=== PATIENT | male | born 1975 ===

== ENCOUNTER 2017-08-15 18:59 | Observation (INO) | payer BC ==
[2017-08-15 18:59] VITALS: BMI 34.4
[2017-08-15] MEDS ORDERED: Sodium Chloride 0.9% 1,000 ML IV STA (19:16)
[2017-08-15 19:23] VITALS: RESP 18; TEMP 98.6
[2017-08-15 19:57] LABS: BASO # 0.04 K/mm3 (0.0-2.0); BASO % 0.5 % (0.0-3.0); EOS # 0.2 (0.0-0.7); EOS % 2.1 % (1.5-5.0); GRAN # 4.07 (1.4-6.5); GRAN % 49.1 % (50.0-68.0); HEMATOCRIT 48.4 % (42.0-52.0); LYMPH # 3.4 (1.2-3.4); LYMPH % 41.4 % (22.0-35.0); MEAN CORPUSCULAR HGB CONC 34.1 g/dl (31.0-37.0); MEAN PLATELET VOLUME 10.1 fl (7.0-11.0); MONO # 0.6 (0.1-0.6); MONO % 6.9 % (1.0-6.0); RED CELL DISTRIBUTION WIDTH 14.2 % (11.5-14.5); WHITE BLOOD COUNT 8.3 10^3/ul (4.5-11.0)
[2017-08-15 19:59] LABS: ALB/GLOB RATIO 1.5 (1.1-1.8); ALKALINE PHOSPHATASE 101 U/L (38-126); ALT/SGPT 72 U/L (7-56); AST/SGOT 57 U/L (17-59); BILIRUBIN,TOTAL 0.3 mg/dL (0.2-1.3); BLOOD UREA NITROGEN 15 mg/dL (7-21); CALCIUM 9.3 mg/dL (8.4-10.5); CARBON DIOXIDE 31 mmol/L (21-33); CHLORIDE 103 mmol/L (98-107); GFR AFRICAN-AMERICAN > 60; GLUCOSE,RANDOM 106 mg/dL (70-110); POTASSIUM 4.1 mmol/L (3.6-5.0); SODIUM 151 mmol/L (132-148); TOTAL PROTEIN 8.2 g/dL (5.8-8.3)
--- NOTE | 2017-08-15 21:01 | ED PDOC ---
Arrival/HPI - General Historian: Spouse, Police - History of Present Illness Time/Duration: Prior to Arrival Symptom Course: Unchanged Quality: Other Context: Home <Kayla Daniels - Last Filed: 08/16/17 02:12> <Valentin Epstein - Last Filed: 08/16/17 05:42> - General Chief Complaint: Alcohol Ingestion Time Seen by Provider: 08/15/17 19:16 - History of Present Illness Narrative History of Present Illness (Text): 08/15/17 20:57 A 42 year old male brought into the emergency department by [place] Police for alcohol intoxication. Police report patient was drinking at home when they received a call for aggressive behavior. reports patient drinks alcohol on a daily basis but has never seen him this intoxicated before. Patient is refusing to provide any further details. HPI and ROS limited. (Kayla Daniels) Past Medical History - Provider Review Nursing Documentation Reviewed: Yes - Infectious Disease Hx of Infectious Diseases: None - Tetanus Immunization Tetanus Immunization: Unknown - Past Medical History Past Medical History: No Previous - Musculoskeletal/Rheumatological Hx Falls: No - Psychiatric Hx Depression: Yes Hx Emotional Abuse: No Hx Physical Abuse: No Hx Substance Use: No - Surgical History Hx Appendectomy: Yes - Suicidal Assessment Feels Threatened In Home Enviroment: No <Kayla Daniels - Last Filed: 08/16/17 02:12> Family/Social History - Physician Review Nursing Documentation Reviewed: Yes Family/Social History: No Known Family HX Smoking Status: Never Smoked Hx Alcohol Use: Yes (1 pint vodka) Hx Substance Use: No Hx Substance Use Treatment: No <Kayla Daniels - Last Filed: 08/16/17 02:12> Allergies/Home Meds <Kayla Daniels - Last Filed: 08/16/17 02:12> <Valentin Epstein - Last Filed: 08/16/17 05:42> Allergies/Adverse Reactions: Allergies No Known Allergies Allergy (Verified 08/15/17 19:05) Home Medications: Home Meds Medication Instructions Recorded Confirmed Unobtainable 08/15/17 08/15/17 Review of Systems - Review of Systems Systems not reviewed;Unavailable: Intoxicated <Kayla Daniels - Last Filed: 08/16/17 02:12> Physical Exam Vital Signs Reviewed: Yes Temperature: Afebrile Blood Pressure: Normal Pulse: Tachycardic Respiratory Rate: Normal Appearance: Positive for: Other (Toxicated male, alcohol on breath) Pain Distress: None Mental Status: Positive for: other (intoxicated. alert) Finger Stick Blood Glucose: 106 - Systems Exam Head: Present: Atraumatic, Normocephalic Pupils: Present: PERRL Extroacular Muscles: Present: EOMI Conjunctiva: Present: Normal Mouth: Present: Moist Mucous Membranes Neck: Present: Normal Range of Motion. No: Other (bony tenderness, step offs or crepitus) Respiratory/Chest: Present: Clear to Auscultation, Good Air Exchange. No: Respiratory Distress, Accessory Muscle Use Cardiovascular: Present: Regular Rate and Rhythm, Tachycardic Abdomen: Present: Peritoneal Signs. No: Tenderness, Distention Back: Present: Normal Inspection, Other (bony tenderness, step offs or crepitus) Upper Extremity: Present: Normal Inspection, Normal ROM. No: Cyanosis, Edema, Tenderness Lower Extremity: Present: Normal Inspection, NORMAL PULSES, Normal ROM. No: Edema, CALF TENDERNESS, Tenderness Skin: Present: Warm, Dry, Normal Color. No: Rashes Psychiatric: Present: Alert, Agitated, Intoxicated. No: Lethargic <Kayla Daniels - Last Filed: 08/16/17 02:12> Vital Signs Temp Pulse Resp BP Pulse Ox 08/15/17 19:22 98.6 F 100 H 18 129/69 96 Medical Decision Making - Lab Interpretations I have reviewed the lab results: Yes <Kayla Daniels - Last Filed: 08/16/17 02:12> <Valentin Epstein - Last Filed: 08/16/17 05:42> ED Course and Treatment: 08/15/17 20:57 A 42 year old male brought in for alcohol intoxication. Police reported aggressive behavior. Plan is to check labs and observe pending sobriety. cbc;wnl cmp; wnl alcohol; 416 ct head; pt at risk for causing harm to self; pt placed in restraints, ativan and haldol ordered. restraints discontinued at 11:30PM after patient resting comfortably. no distress. 08/16/17 02:12 case signed out to dr. epstein pending sobriety and disposition (Kayla Daniels) Case signed out to me. Pending sobriety, reevaluation and disposition. ( Valentin Epstein) - Medication Orders Current Medication Orders: Discontinued Medications Haloperidol Lactate (Haldol) 5 mg IM STAT STA PRN Reason: Protocol Stop: 08/15/17 22:09 Last Admin: 08/15/17 22:20 Dose: 5 mg IM Administration Charges Document 08/15/17 22:20 ESTHER (Rec: 08/15/17 22:21 ESTHER [id number]) Injection Site MAR Injection Site Left Deltoid Charges for Administration # of IM Administrations 1 Sodium Chloride (Sodium Chloride 0.9%) 1,000 mls @ 999 mls/hr IV .Q1H1M STA Stop: 08/15/17 20:16 Last Admin: 08/15/17 19:33 Dose: 999 mls/hr eMAR Start Stop Document 08/15/17 19:33 ESTHER (Rec: 08/15/17 19:33 ESTHER [id number]) Intravenous Solution Start Date 08/15/17 Start Time 19:33 End Date 08/15/17 End time 20:23 Total Infusion Time 50 Lorazepam (Ativan) 2 mg IM ONCE ONE Stop: 08/15/17 22:08 Last Admin: 08/15/17 22:19 Dose: 2 mg IM Administration Charges Document 08/15/17 22:19 ESTHER (Rec: 08/15/17 22:19 ESTHER [id number]) Injection Site MAR Injection Site Left Arm Charges for Administration # of IM Administrations 1 Ondansetron HCl (Zofran Inj) 4 mg IVP STAT STA Stop: 08/15/17 19:17 Last Admin: 08/15/17 19:34 Dose: 4 mg IVP Administration Document 08/15/17 19:34 ESTHER (Rec: 08/15/17 19:34 ESTHER [id number]) Charges for Administration # of IVP Administrations 1 ED OBSERVATION Date of observation admission: 08/15/17 Time of observation admission: 19:20 - Observation admission statement Patient is placed on observation because of need: for serial examinations to determine stability for disposition - Goals of Observation Goals of Observation: Clinical sobriety - Progress Note Time:: 19:10 <Kayla Daniels - Last Filed: 08/16/17 02:12> Discharge: Yes <Valentin Epstein - Last Filed: 08/16/17 05:42> - Progress Note Progress Note: 08/15/17 19:10 Patient brought in for alcohol intoxication. Will observe pending sobriety. 08/15/17 19:58 Code star was called at this time for witnessed fall. Patient stood up from his bed and fell to the ground. Patient remains alert, however remains intoxicated. Will order Head CT. 08/16/17 22:00 pt sleeping. no distress. 08/16/17 01:09 pt sleeping; HEad ct negative. no distress. (Kayla Daniels) 08/16/17 02:30 Patient is resting comfortably. 08/16/17 04:20 Patient is in no acute distress. 08/16/17 05:41 Patient is awake, alert with steady gait. is present to accompany patient home. Patient in agreement with plan to be discharged home. Patient is stable for discharge. Patient was instructed to follow up with physician or return if symptoms worsen or new concerning symptoms arise. 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 MD/ has examined the patient and agrees with the treatment plan. <Valentin Epstein - Last Filed: 08/16/17 05:42> - Scribe Statement Radha Ansari Provider Scribe Attestation: All medical record entries made by the Scribe were at my direction and personally dictated by me. I have reviewed the chart and agree that the record accurately reflects my personal performance of the history, physical exam, medical decision making, and the department course for this patient. I have also personally directed, reviewed, and agree with the discharge instructions and disposition. (Kayla Daniels) Disposition/Present on Arrival - Present on Arrival Any Indicators Present on Arrival: No History of DVT/PE: No History of Uncontrolled Diabetes: No Urinary Catheter: No History of Decub. Ulcer: No History Surgical Site Infection Following: None - Disposition Have Diagnosis and Disposition been Completed?: Yes <Kayla Daniels - Last Filed: 08/16/17 02:12> - Present on Arrival Any Indicators Present on Arrival: No - Disposition Have Diagnosis and Disposition been Completed?: Yes Disposition Time: 05:40 Patient Plan: Discharge <Valentin Epstein - Last Filed: 08/16/17 05:42> - Disposition Diagnosis: Alcohol intoxication Disposition: HOME/ ROUTINE Patient Problems: Current Active Problems Problem Status Onset Alcohol intoxication Acute Condition: GOOD
--- NOTE | 2017-08-16 00:40 | CT ---
EXAM: CT Head Without Intravenous Contrast CLINICAL HISTORY: 42 years old, male; Injury or trauma; Fall; Initial encounter; Concussion / head injury; Additional info: Fall/etoh TECHNIQUE: Axial computed tomography images of the head/brain without intravenous contrast. All CT scans at this facility use one or more dose reduction techniques, viz.: automated exposure control; ma/kV adjustment per patient size (including targeted exams where dose is matched to indication; i.e. head); or iterative reconstruction technique. COMPARISON: No relevant prior studies available. FINDINGS: Brain: No acute intracranial hemorrhage. No significant white matter disease. No edema. Ventricles: No significant ventriculomegaly. Bones: No acute displaced fracture. Sinuses: Unremarkable as visualized. No acute sinusitis. Mastoid air cells: Unremarkable as visualized. No mastoid effusion. IMPRESSION: No acute intracranial hemorrhage, or suspicious mass effect.
[2017-08-16 05:57] VITALS: BP 124/76; PULSE 84; O2SAT 99
== END 2017-08-16 05:39 | disposition home or self-care (01) ==
LOC: ED 18:59 → EROBSV 19:10
PROVIDERS: ADMIT Emergency Medicine; ATTEND Emergency Medicine
DX: F10.129 Alcohol abuse with intoxication, unspecified (principal); Y90.8 Blood alcohol level of 240 mg/100 ml or more
CPT/HCPCS: 70450; 80053; 82948; 85025; 96361; 96372; 96374; 99284; G0378; G0480; J1630; J2060; J2405; J7040

== ENCOUNTER 2017-10-13 10:52 | Emergency (ER) | payer BC ==
[2017-10-13 10:52] VITALS: BMI 34.4
[2017-10-13 11:15] VITALS: TEMP 97.5
--- NOTE | 2017-10-13 12:22 | ED PDOC ---
Arrival/HPI - General Chief Complaint: Alcohol Ingestion Time Seen by Provider: 10/13/17 10:57 Historian: Patient, EMS - History of Present Illness Narrative History of Present Illness (Text): 10/13/17 12:20 A 42 year old male, well known to [facility] for ETOH intoxication, presents to the emergency department via EMS after being found outside of a bar. The patient was brought into the emergency department for further evaluation. The patient denies fevers, chills, headache, dizziness, chest pain, shortness of breath, dyspnea on exertion, cough, abdominal pain, nausea, vomiting, diarrhea, back pain, neck pain, urinary/bowel changes, or any other complaint. Time/Duration: Prior to Arrival Symptom Onset: Sudden Symptom Course: Unchanged Activities at Onset: Rest Context: Street Past Medical History - Infectious Disease Hx of Infectious Diseases: None - Tetanus Immunization Tetanus Immunization: Unknown - Past Medical History Past Medical History: No Previous - Musculoskeletal/Rheumatological Hx Falls: No - Psychiatric Hx Depression: Yes Hx Substance Use: No - Surgical History Hx Appendectomy: Yes - Suicidal Assessment Feels Threatened In Home Enviroment: No Family/Social History - Physician Review Nursing Documentation Reviewed: Yes Family/Social History: Unknown Family HX Smoking Status: Never Smoked Hx Alcohol Use: Yes (1 pint vodka) Frequency of alcohol use: Daily Hx Substance Use: No Hx Substance Use Treatment: No Allergies/Home Meds Allergies/Adverse Reactions: Allergies Unobtainable Allergy (Verified 10/13/17 10:59) Home Medications: Home Meds Medication Instructions Recorded Confirmed Unobtainable 08/15/17 10/13/17 Review of Systems - Physician Review All systems were reviewed & negative as marked: Yes - Review of Systems Constitutional: absent: Fevers, Night Sweats Respiratory: absent: SOB Cardiovascular: absent: Chest Pain, SCHWARTZ Gastrointestinal: absent: Abdominal Pain, Stool Changes, Diarrhea, Nausea, Vomiting Genitourinary Male: absent: Urinary Output Changes Musculoskeletal: absent: Back Pain, Neck Pain Neurological: absent: Headache, Dizziness Physical Exam Vital Signs Temp Pulse Resp BP Pulse Ox 10/13/17 13:15 74 16 130/75 96 10/13/17 11:15 97.5 F L 79 18 140/84 95 Temperature: Hypothermic Blood Pressure: Normal Pulse: Regular Respiratory Rate: Normal Appearance: Positive for: Well-Appearing Pain Distress: None Mental Status: Positive for: Alert and Oriented X 3 Finger Stick Blood Glucose: 96 - Systems Exam Head: Present: Atraumatic, Normocephalic Pupils: Present: PERRL Extroacular Muscles: Present: EOMI Conjunctiva: Present: Normal Mouth: Present: Moist Mucous Membranes Neck: Present: Normal Range of Motion Respiratory/Chest: Present: Clear to Auscultation, Good Air Exchange. No: Respiratory Distress, Accessory Muscle Use Cardiovascular: Present: Regular Rate and Rhythm, Normal S1, S2. No: Murmurs Abdomen: Present: Normal Bowel Sounds. No: Tenderness, Distention, Peritoneal Signs Back: Present: Normal Inspection Upper Extremity: Present: Normal Inspection. No: Cyanosis, Edema Lower Extremity: Present: Normal Inspection. No: Edema Neurological: Present: GCS=15, CN II-XII Intact, Speech Normal Skin: Present: Warm, Dry, Normal Color. No: Rashes Psychiatric: Present: Alert, Oriented x 3, Normal Insight, Normal Concentration Medical Decision Making ED Course and Treatment: 10/13/17 12:26 Impression: A 42 year old male is brought into the emergency department for ETOH intoxication after being found outside of a bar. Plan: -- EKG -- Reassess and disposition Prior Visits: Notes and results from previous visits were reviewed. Patient was last seen in the emergency department on 08/15/17. Patient was seen in the emergency department after being brought in by [facility] for aggressive behavior and ETOH intoxication. The patient was discharged home. Progress Notes: 10/14/17 07:32 was called and pick up operator patient. d/c to . pt ambualted out of er. - EKG Interpretation Interpreted by ED Physician: Yes Type: 12 lead EKG - Medication Orders Current Medication Orders: Discontinued Medications Lorazepam (Ativan) 2 mg IM STAT STA PRN Reason: Protocol Stop: 10/13/17 14:41 Ziprasidone (Geodon Inj) 20 mg IM STAT STA PRN Reason: Protocol Stop: 10/13/17 14:41 - Scribe Statement The provider has reviewed the documentation as recorded by the Sylviaibe Latia Ramirez Provider Scribe Attestation: All medical record entries made by the Scribe were at my direction and personally dictated by me. I have reviewed the chart and agree that the record accurately reflects my personal performance of the history, physical exam, medical decision making, and the department course for this patient. I have also personally directed, reviewed, and agree with the discharge instructions and disposition. Disposition/Present on Arrival - Present on Arrival Any Indicators Present on Arrival: No History of DVT/PE: No History of Uncontrolled Diabetes: No Urinary Catheter: No History of Decub. Ulcer: No History Surgical Site Infection Following: None - Disposition Have Diagnosis and Disposition been Completed?: Yes Diagnosis: Alcohol intoxication Disposition: HOME/ ROUTINE Disposition Time: 02:00 Condition: STABLE Discharge Instructions (ExitCare): Alcohol Intoxication (DC) Additional Instructions: please follow up with your doctor. return to er with worsening symptoms or concerns. Referrals: Cydney Gilliland, [Primary Care Provider] - Follow up with primary Forms: [employer] (Croatian)
[2017-10-13 13:15] VITALS: BP 130/75; PULSE 74; RESP 16; O2SAT 96
--- NOTE | 2017-10-13 17:08 | CARD ---
APPROVED REPORT EKG Measurement Heart [id number] <Conclusion> Normal sinus rhythm with sinus arrhythmia Normal ECG
== END 2017-10-13 15:30 | disposition home or self-care (01) ==
LOC: ED 10:52
DX: F10.129 Alcohol abuse with intoxication, unspecified (principal); Y90.9 Presence of alcohol in blood, level not specified

== ENCOUNTER 2019-01-29 18:01 | Emergency (ER) | payer BC ==
[2019-01-29 18:01] VITALS: BMI 34.4
[2019-01-29] MEDS ORDERED: Sodium Chloride 0.9% 1,000 ML IV STA (18:43)
[2019-01-29 18:53] VITALS: RESP 18; TEMP 97.7
--- NOTE | 2019-01-29 18:55 | ED PDOC ---
Arrival/HPI - General Historian: Patient - History of Present Illness Narrative History of Present Illness (Text): 01/29/19 18:55 Patient is a 43-year-old M in police custody who presents with chest pain x2 minutes. Patient says pain is on the left side of chest. Patient is unable to describe the pain and just says "i felt uncomfortable." Patient rates the pain at 4/10 in severity and radiating all throughout his left body. Patient admits to nausea and shortness of breath, palpitations, but Patient otherwise denies vomiting, headache, back pain, leg pain, fever and/or chills. Patient states this never happened before and he says he is feeling anxious. <Delfino Shipman - Last Filed: 01/29/19 20:44> <Jackson Oliveira - Last Filed: 01/29/19 20:55> - General Chief Complaint: Anxiety Time Seen by Provider: 01/29/19 18:26 Past Medical History - Provider Review Nursing Documentation Reviewed: Yes - Infectious Disease Hx of Infectious Diseases: None - Tetanus Immunization Tetanus Immunization: Unknown - Past Medical History Past Medical History: No Previous - Musculoskeletal/Rheumatological Hx Falls: No - Psychiatric Hx Depression: Yes Hx Substance Use: No - Surgical History Hx Appendectomy: Yes - Anesthesia Hx Anesthesia: No Hx Anesthesia Reactions: No Hx Malignant Hyperthermia: No - Suicidal Assessment Feels Threatened In Home Enviroment: No <Delfino Shipman - Last Filed: 01/29/19 20:44> Family/Social History - Physician Review Nursing Documentation Reviewed: Yes Family/Social History: No Known Family HX Smoking Status: Never Smoked Hx Alcohol Use: Yes (1 pint vodka) Hx Substance Use: No Hx Substance Use Treatment: No <Delfino Shipman - Last Filed: 01/29/19 20:44> Allergies/Home Meds <Delfino Shipman - Last Filed: 01/29/19 20:44> <Jackson Oliveira - Last Filed: 01/29/19 20:55> Allergies/Adverse Reactions: Allergies No Known Allergies Allergy (Verified 01/29/19 18:33) Review of Systems - Review of Systems Constitutional: Normal Eyes: Normal ENT: Normal Respiratory: SOB. absent: Cough, Sputum, Wheezing Cardiovascular: Chest Pain, Palpitations. absent: Edema, Calf Pain Gastrointestinal: Nausea. absent: Abdominal Pain, Vomiting Skin: Normal Neurological: Normal. absent: Headache, Dizziness, Focal Weakness Endocrine: Normal. absent: Diaphoresis Hemo/Lymphatic: Normal Psychiatric: Anxiety <Delfino Shipman - Last Filed: 01/29/19 20:44> Physical Exam Appearance: Positive for: Uncomfortable Pain Distress: None Mental Status: Positive for: Alert and Oriented X 3 - Systems Exam Head: Present: Atraumatic, Normocephalic Pupils: Present: PERRL Extroacular Muscles: Present: EOMI Conjunctiva: Present: Normal Mouth: Present: Moist Mucous Membranes Neck: Present: Normal Range of Motion Respiratory/Chest: No: Respiratory Distress, Wheezes Abdomen: Present: Normal Bowel Sounds. No: Tenderness, Distention, Peritoneal Signs Upper Extremity: Present: Normal Inspection. No: Cyanosis, Edema, Tenderness, Swelling Lower Extremity: Present: Normal Inspection. No: Edema, CALF TENDERNESS Neurological: Present: GCS=15, CN II-XII Intact, Speech Normal Skin: Present: Warm, Dry, Normal Color. No: Rashes Psychiatric: Present: Alert, Oriented x 3, Normal Insight, Normal Concentration, Anxious, Agitated <Delfino Shipman - Last Filed: 01/29/19 20:44> Vital Signs Temp Pulse Resp BP Pulse Ox 01/29/19 18:01 97.7 F 77 18 143/95 H 95 <Jackson Oliveira - Last Filed: 01/29/19 20:55> Medical Decision Making ED Course and Treatment: 01/29/19 19:00 Patient is a 43-year-old M in police custody who presents with chest pain x2 minutes and for anxiety PLAN: - CBC - CMP - Mg - Phos - EKG - Chest X-ray - Troponin - D- Dimer 01/29/19 19:51 CBC unremarkable Chest X-ray reveals no changes from previous X-ray performed on 02/02/18 01/29/19 19:56 CMP remarkable for transaminitis 01/29/19 19:57 D-Dimer 225 01/29/19 20:44 Patient's symptoms improved Patient hemodynamically stable and clinically optimized for discharge back to police custody Patient to follow-up with primary care physician within 3-5 days of being discharged from emergency department - RAD Interpretation Radiology Orders: 01/29/19 18:41 CHEST PORTABLE [RAD] Stat - EKG Interpretation Interpreted by ED Physician: Yes Type: 12 lead EKG - Medication Orders Current Medication Orders: Sodium Chloride (Sodium Chloride 0.9%) 1,000 mls @ 999 mls/hr IV .Q1H1M STA Stop: 01/29/19 19:43 Discontinued Medications Ketorolac Tromethamine (Toradol) 15 mg IVP STAT STA Stop: 01/29/19 18:43 <Delfino Shipman - Last Filed: 01/29/19 20:44> - RAD Interpretation Radiology Orders: 01/29/19 18:41 CHEST PORTABLE [RAD] Stat - EKG Interpretation EKG Interpretation (Text): 01/29/19 18:29 EKG reviewed, sinus at 77 bpm, no ST elevations, peaked T waves. Interpreted by ED Physician: Yes Type: 12 lead EKG - Medication Orders Current Medication Orders: Sodium Chloride (Sodium Chloride 0.9%) 1,000 mls @ 999 mls/hr IV .Q1H1M STA Stop: 01/29/19 19:43 Discontinued Medications Ketorolac Tromethamine (Toradol) 15 mg IVP STAT STA Stop: 01/29/19 18:43 <Jackson Oliveira - Last Filed: 01/29/19 20:55> Disposition/Present on Arrival - Present on Arrival Any Indicators Present on Arrival: No History of DVT/PE: No History of Uncontrolled Diabetes: No Urinary Catheter: No History of Decub. Ulcer: No History Surgical Site Infection Following: None - Disposition Have Diagnosis and Disposition been Completed?: Yes Disposition Time: 20:36 Patient Plan: Discharge <Delfino Shipman - Last Filed: 01/29/19 20:44> <Jackson Oliveira - Last Filed: 01/29/19 20:55> - Disposition Diagnosis: Anxiety, Alcoholism Patient Problems: Current Active Problems Problem Status Onset Anxiety Acute Alcoholism Acute Condition: STABLE Discharge Instructions (ExitCare): Alcohol Use - When Is Drinking a Problem?, Anxiety, Adult (DC), Alcohol Abuse and Alcoholism (DC) Print Language: GEORGIAN Additional Instructions: MEDICALLY CLEARED FOR DISCHARGE INTO POLICE CUSTODY Follow-up with primary care physician within 3-5 days of being discharged from emergency department Return to the emergency department immediately if symptoms return Complete alcohol cessation is strongly encouraged Prescriptions: chlordiazePOXIDE [Chlordiazepoxide HCl] 25 mg PO PRN PRN #4 cap PRN Reason: Anxiety Referrals: Robina Montgomery MD [Medical Doctor] - Follow up with primary [facility] [Outside] - Follow up with primary Forms: [employer] (Portuguese)
[2019-01-29 19:41] LABS: BASO # 0.05 K/mm3 (0.0-2.0); BASO % 0.6 % (0.0-3.0); EOS % 0.2 % (1.5-5.0); HEMOGLOBIN 15.9 g/dL (14.0-18.0); LYMPH # 2.4 (1.2-3.4); LYMPH % 30.2 % (22.0-35.0); MEAN CORPUSCULAR HEMOGLOBIN 31.5 pg (25.0-35.0); MEAN CORPUSCULAR HGB CONC 33.1 g/dl (31.0-37.0); MEAN PLATELET VOLUME 9.8 fl (7.0-11.0); MONO # 0.4 (0.1-0.6); MONO % 4.9 % (1.0-6.0); RBC 5.05 10^6/uL (3.5-6.1); RED CELL DISTRIBUTION WIDTH 14.8 % (11.5-14.5)
[2019-01-29 19:54] LABS: ALB/GLOB RATIO 1.1 (1.1-1.8); ALBUMIN 4.6 g/dL (3.0-4.8); ALT/SGPT 90 U/L (7-56); AST/SGOT 73 U/L (17-59); BLOOD UREA NITROGEN 6 mg/dL (7-21); CALCIUM 9.2 mg/dL (8.4-10.5); GFR NON-AFRICAN AMERICAN > 60
[2019-01-29 20:10] LABS: TROPONIN I < 0.01 ng/mL
[2019-01-29 20:58] VITALS: O2SAT 100
[2019-01-29 21:32] VITALS: BP 145/87; PULSE 91
[2019-01-29 22:21] LABS: BARBITURATES, UR NEGATIVE (NEGATIVE); BENZODIAZEPINES, UR NEGATIVE (NEGATIVE); OPIATES, UR NEGATIVE (NEGATIVE); PHENCYCLIDINE, UR NEGATIVE (NEGATIVE)
--- NOTE | 2019-01-30 09:15 | RAD ---
Date of service: 01/29/2019 HISTORY: Chest pain COMPARISON: 02/02/2018 FINDINGS: LUNGS: No active pulmonary disease. PLEURA: No significant pleural effusion identified, no pneumothorax apparent. CARDIOVASCULAR: No aortic atherosclerotic calcification present. Mild cardiomegaly. No pulmonary vascular congestion. OSSEOUS STRUCTURES: No significant abnormalities. VISUALIZED UPPER ABDOMEN: Normal. OTHER FINDINGS: None. IMPRESSION: No active disease.
--- NOTE | 2019-01-30 17:26 | CARD ---
APPROVED REPORT Date of service: 01/29/2019 EKG Measurement Heart [id number] <Conclusion> Normal sinus rhythm Normal ECG
== END 2019-01-29 21:10 | disposition home or self-care (01) ==
LOC: ED 18:01
DX: F41.9 Anxiety disorder, unspecified (principal); F10.20 Alcohol dependence, uncomplicated
CPT/HCPCS: 71045; 80053; 83735; 84100; 84484; 85025; 85378; 93005; 96374; 99283; G0480; J1885; J7030